=== PATIENT | female | born 1990 ===

== ENCOUNTER 2020-05-02 08:48 | Inpatient (IN) | payer BC ==
[2020-05-02] MEDS ORDERED: Misoprostol 25 MCG (1/4 of 100 MCG) Tab ONE (09:05)
[2020-05-02] MEDS ORDERED: Sodium Chloride 0.9% 10 ML Syringe FLUSH PRN (09:48)
[2020-05-02] MEDS ORDERED: Nalbuphine 10 MG/1 ML Vial IVPUSH PRN (09:48)
[2020-05-02] MEDS ORDERED: Misoprostol 200 MCG Tab PO PRN (09:48)
[2020-05-02] MEDS ORDERED: Lidocaine 1% 50 ML MDV INJECT PRN (09:48)
[2020-05-02] MEDS ORDERED: Water For Irrigation,Sterile 1,000 ML Container IRR PRN (09:48)
[2020-05-02] MEDS ORDERED: Misoprostol 25 MCG (1/4 of 100 MCG) Tab VAG PRN ×2 (09:48)
[2020-05-02] MEDS ORDERED: Methylergonovine 0.2 MG/1 ML Amp IM PRN ×2 (09:48→20:22)
[2020-05-02] MEDS ORDERED: Ampicillin 2 GM in Sodium Chloride 0.9% 100 ML IV ONE (09:48)
[2020-05-02] MEDS ORDERED: Sodium Chloride 0.9% 10 ML SDV IV PRN (09:48)
[2020-05-02] MEDS ORDERED: Terbutaline 1 MG/ML SDV SUBCUT PRN (09:48)
[2020-05-02] MEDS ORDERED: Sodium Chloride 0.9% 2.5 ML Syringe FLUSH PRN (09:48)
[2020-05-02] MEDS ORDERED: Butorphanol 1 MG/ML SDV IVPUSH PRN (09:48)
[2020-05-02] MEDS ORDERED: Ondansetron 4 MG/2 ML SDV IVPUSH PRN (09:48)
[2020-05-02] MEDS ORDERED: Carboprost Tromethamine 250 MCG/1 ML Amp IM PRN (09:48)
[2020-05-02] MEDS ORDERED: Tranexamic Acid 1,000 MG in Sodium Chloride 0.9% 100 ML IV PRN ×2 (09:48→20:22)
[2020-05-02] MEDS ORDERED: Oxytocin/0.9 % Sodium Chloride 30 UNIT/500 ML BAG IV SCH ×2 (10:00)
[2020-05-02] MEDS ORDERED: Lactated Ringers 1,000 ML IV SCH (10:00)
[2020-05-02] MEDS: Ampicillin 1 GM in Sodium Chloride 0.9% 50 ML IV SCH ×2 (13:47→18:11)
[2020-05-02] MEDS ORDERED: Benzocaine/Menthol 20%-0.5% Spray 78 GM Cannister TOP PRN (20:22)
[2020-05-02] MEDS ORDERED: Acetaminophen 500 MG Tab PO PRN ×2 (20:22)
[2020-05-02] MEDS ORDERED: Docusate Sodium 100 MG Cap PO PRN (20:22)
[2020-05-02] MEDS ORDERED: Ibuprofen 400 MG Tab PO PRN (20:22)
[2020-05-02] MEDS ORDERED: Bisacodyl 10 MG Supp RECTAL PRN (20:22)
[2020-05-02] MEDS ORDERED: Lanolin 100% Cream 7 GM Tube TOP PRN (20:22)
[2020-05-02] MEDS ORDERED: Hydrocortisone 2.5% Crm 30 GM Tube TOP PRN (20:22)
--- NOTE | 2020-05-02 20:29 | PCM.OPNOTE ---
- General Post-Op/Procedure Note Date of Surgery/Procedure: 05/02/20 Operative Procedure(s): TSVD, repair of 1st degree laceration Findings: liveborn female 3470 grams, 9/10, 1st degree perineal laceration repaired. Placenta spontaneous Schultze intact with 3 vessels. Pre Op Diagnosis: 39 weeks GBS positive Post-Op Diagnosis: Same Anesthesia Technique: Local Primary Surgeon: Marilyn Sommers Pathology: none EBL in mLs: 300 Complications: None Known Condition: Good
[2020-05-02] MEDS: Ibuprofen 800 MG Tab PO PRN (22:40)
--- NOTE | 2020-05-02 23:15 | OR ---
SURGEON: Marilyn Sommers M.D. DATE OF PROCEDURE: 05/02/2020 PREOPERATIVE DIAGNOSES: 1. A 39-week intrauterine . 2. Group B Streptococcus positive. POSTOPERATIVE DIAGNOSES: 1. A 39-week intrauterine . 2. Group B Streptococcus positive. PROCEDURES: 1. Cytotec, Pitocin induction of labor. 2. Term spontaneous vaginal delivery. 3. Repair of first-degree laceration. 4. Group B Streptococcus prophylaxis. PRIMARY SURGEON: Marilyn Sommers MD. ANESTHESIA: Local. ESTIMATED BLOOD LOSS: Less than 200 mL. FINDINGS: Liveborn female. score of 9 and 10. Weighing 3490 g. Placenta spontaneous, Schultze intact, with 3 vessels. First-degree perineal laceration repaired. COMPLICATIONS: None known. DISPOSITION: Mother and baby in LDR in good. BRIEF HISTORY: This is a 30-year-old female, G3, P2. She presents at 39 weeks' gestation for induction of labor. She was on Pitocin every 1 to 2 minute. She had received ampicillin for group B strep prophylaxis. She had artificial rupture of membranes and progressed to complete approximately 7 hours later. DESCRIPTION OF PROCEDURE: With the patient in dorsal lithotomy position, the patient pushed over 4 contractions to a 5+ station, at which time the head was delivered spontaneously and atraumatically over the perineum with support with subsequent delivery of the 's shoulders and body without any difficulty. The was bulb suctioned by nose and mouth, and after the cord had ceased to pulsate, it was doubly clamped and cut. The was handed to the mother in the presence of nursing delivery. The infant is a liveborn female, score of 9 and 10, weighing 3490 g. Cord blood was collected for cord ABGs as well as routine cord blood sampling. Pitocin was initiated after delivery of the to assist with delivery the placenta, which was delivered spontaneously, Schultze intact, with 3 vessels. Upon inspection of the pelvis and perineum, there were no periurethral, vaginal sidewall, cervical, or rectal lacerations. There was a first-degree laceration at 5 o'clock position that was repaired after instilling 15 mL of 1% lidocaine with a running subcuticular suture of 3-0 Vicryl. Note was made of a large pedunculated hemorrhoid and a prior laceration at the 7 o'clock position that looked like it had healed from secondary intention. Thankfully, this did not recur during this delivery. Final sponge, needle, and instrument counts were correct. There were no known complications. Mother and baby remained in LDR in good condition. LIA PEDRO /[id number]
[2020-05-02] MEDS: Witch Hazel Medicated Pads 40/Jar TOP PRN (23:18)
--- NOTE | 2020-05-03 08:21 | PCM.PNPP ---
- General Info Date of Service: 05/03/20 Admission Dx/Problem (Free Text): 30 year old at 39w1d gestation admitted for elective induction of labor Subjective Update: Resting comfortably in bed. No new concerns overnight. Ambulating and voiding without difficulty. Lochia decreasing. Pain well controlled. Tolerating regular diet. , going well per patient. - General Info Date of Service: 05/03/20 - Patient Data Vital Signs - Most Recent: Last Vital Signs Temp 97.9 F 05/03/20 07:41 Pulse 100 05/03/20 04:39 Resp 20 05/03/20 07:41 BP 113/71 05/03/20 07:41 Pulse Ox 94 L 05/03/20 07:41 Weight - Most Recent: 173 lb Lab Results - Last 24 Hours: Laboratory Results - last 24 hr 05/02/20 05/02/20 05/02/20 Range/Units 09:20 09:20 19:58 WBC 9.17 (4.0-11.0) K/uL RBC 3.92 L (4.30-5.90) M/uL Hgb 12.1 (12.0-16.0) g/dL Hct 36.3 (36.0-46.0) % MCV 92.6 (80.0-98.0) fL MCH 30.9 (27.0-32.0) pg MCHC 33.3 (31.0-37.0) g/dL RDW Std Deviation 45.2 (28.0-62.0) fl RDW Coeff of Aura 14 (11.0-15.0) % Plt Count 296 (150-400) K/uL MPV 9.40 (7.40-12.00) fL Nucleated RBC % 0.0 /100WBC Nucleated RBCs # 0 K/uL Cord ABG pH 7.306 (7.18-7.38) Cord ABG Base Excess -5 (-10--2) Cord VBG pH 7.359 (7.25-7.45) Cord VBG Base Excess -5 (-10--2) Blood Type O POSITIVE Antibody Screen NEGATIVE 05/03/20 Range/Units 05:48 WBC (4.0-11.0) K/uL RBC (4.30-5.90) M/uL Hgb 12.1 (12.0-16.0) g/dL Hct 36.4 (36.0-46.0) % MCV (80.0-98.0) fL MCH (27.0-32.0) pg MCHC (31.0-37.0) g/dL RDW Std Deviation (28.0-62.0) fl RDW Coeff of Aura (11.0-15.0) % Plt Count (150-400) K/uL MPV (7.40-12.00) fL Nucleated RBC % /100WBC Nucleated RBCs # K/uL Cord ABG pH (7.18-7.38) Cord ABG Base Excess (-10--2) Cord VBG pH (7.25-7.45) Cord VBG Base Excess (-10--2) Blood Type Antibody Screen Med Orders - Current: Current Medications Acetaminophen (Tylenol Extra Strength) 500 mg PO Q4H PRN PRN Reason: Pain Acetaminophen (Tylenol Extra Strength) 1,000 mg PO Q4H PRN PRN Reason: Pain Benzocaine/Menthol (Dermoplast Pain Relief 20%-0.5% [place]) 78 gm TOP ASDIRECTED PRN PRN Reason: Perineal Comfort Measure Last Admin: 05/02/20 23:21 Dose: 1 canister Documented by: Bisacodyl (Dulcolax) 10 mg RECTAL ONETIME PRN PRN Reason: Constipation Docusate Sodium (Colace) 100 mg PO BID PRN PRN Reason: Constipation Emollient Ointment (Lansinoh Hpa) 0 gm TOP ASDIRECTED PRN PRN Reason: Sore Nipples Hydrocortisone (Proctozone-Hc 2.5% Crm) 1 gm TOP Q12HR PRN PRN Reason: Itching Tranexamic Acid 1,000 mg/ (Sodium Chloride) 110 mls @ 660 mls/hr IV ONETIME PRN PRN Reason: Bleeding Ibuprofen (Motrin) 400 mg PO Q4H PRN PRN Reason: Pain Ibuprofen (Motrin) 800 mg PO Q6H PRN PRN Reason: Pain Last Admin: 05/02/20 22:40 Dose: 800 mg Documented by: Methylergonovine Maleate (Methergine) 0.2 mg IM ONETIME PRN PRN Reason: Excessive Vaginal Bleeding Witch Naomy (Tucks) 1 pad TOP ASDIRECTED PRN PRN Reason: comfort care Last Admin: 05/02/20 23:18 Dose: 1 container Documented by: Discontinued Medications Butorphanol Tartrate (Stadol) 1 mg IVPUSH Q1H PRN PRN Reason: Pain Carboprost Tromethamine (Hemabate Ds) 250 mcg IM ASDIRECTED PRN PRN Reason: Post Hemorrhage Lactated Ringer's (Ringers, Lactated) 1,000 mls @ 150 mls/hr IV ASDIRECTED OBDULIA Last Admin: 05/02/20 10:09 Dose: 150 mls/hr Documented by: Oxytocin/Sodium Chloride (Oxytocin 30 Unit/500 Ml-Ns) 30 unit in 500 mls @ 500 mls/hr IV TITRATE OBDULIA Tranexamic Acid 1,000 mg/ (Sodium Chloride) 110 mls @ 660 mls/hr IV ONETIME PRN PRN Reason: Bleeding Oxytocin/Sodium Chloride (Oxytocin 30 Unit/500 Ml-Ns) 30 unit in 500 mls @ 2 mls/hr IV TITRATE OBDULIA; Protocol Last Titration: 05/02/20 20:00 Dose: 500 munits/min, 500 mls/hr Documented by: Ampicillin Sodium 2 gm/ Sodium (Chloride) 100 mls @ 200 mls/hr IV ONETIME ONE Stop: 05/02/20 10:17 Last Admin: 05/02/20 10:10 Dose: 200 mls/hr Documented by: Ampicillin Sodium 1 gm/ Sodium (Chloride) 50 mls @ 100 mls/hr IV Q4H OBDULIA Last Admin: 05/02/20 18:11 Dose: 100 mls/hr Documented by: Lidocaine HCl (Xylocaine 1%) 50 ml INJECT ONETIME PRN PRN Reason: Laceration repair Last Admin: 05/02/20 20:00 Dose: 50 ml Documented by: Methylergonovine Maleate (Methergine) 0.2 mg IM ASDIRECTED PRN PRN Reason: Post Hemorrhage Misoprostol (Cytotec) Confirm Administered Dose 25 mcg .ROUTE .STK-MED ONE Stop: 05/02/20 09:06 Last Admin: 05/02/20 09:10 Dose: 25 mcg Documented by: Misoprostol (Cytotec) 200 mcg PO ONETIME PRN PRN Reason: Post Hemorrhage Misoprostol (Cytotec) 25 mcg VAG ONETIME PRN PRN Reason: Cervical Ripening Misoprostol (Cytotec) 25 mcg VAG Q4H PRN PRN Reason: Cervical Ripening Nalbuphine HCl (Nubain) 10 mg IVPUSH Q1H PRN PRN Reason: Pain (severe 7-10) Ondansetron HCl (Zofran) 4 mg IVPUSH Q6H PRN PRN Reason: Nausea/Vomiting Sodium Chloride (Saline Flush) 10 ml FLUSH ASDIRECTED PRN PRN Reason: Keep Vein Open Sodium Chloride (Saline Flush) 2.5 ml FLUSH ASDIRECTED PRN PRN Reason: Keep Vein Open Sodium Chloride (Normal Saline) 10 ml IV ASDIRECTED PRN PRN Reason: IV Use Sterile Water (Sterile Water For Irrigation) 1,000 ml IRR ASDIRECTED PRN PRN Reason: delivery Terbutaline Sulfate (Brethine) 0.25 mg SUBCUT ASDIRECTED PRN PRN Reason: Tacysystole - Interaction Disposition, : [place] at Bedside Infant Feeding: Breastfed ; Nursed Well Support Person: - Recovery Exam Fundal Tone: Firm Fundal Level: 1 Fingerbreadths Below Umbilicus Fundal Placement: Midline Lochia Amount: Small Lochia Color: Rubra/Red Perineum Description: Intact, Minimal Bruising/Swelling Episiotomy/Laceration: Approximated Bladder Status: Voiding - Exam General: Alert Lungs: Normal Respiratory Effort Cardiovascular: Regular Rate GI/Abdominal Exam: Soft, Non-Tender Extremities: Normal Inspection, No Pedal Edema Skin: Warm, Dry, Intact Wound/Incisions: Healing Well Neurological: No New Focal Deficit Psy/Mental Status: Normal Mood - Problem List Review Problem List Initiated/Reviewed/Updated: Yes - Assessment Assessment:: 30 year old G3 now P3 PPD 1 s/p - Plan Plan:: Routine cares * Rh positive, rubella immune * GBS positive, received 1 dose of antibiotics prior to rupture of membrane and 2 additional doses prior to delivery for a total of 3. * PO pain medications as indicated * Regular diet as tolerated * , nursing assistance PRN Dispo: stable. Anticipate discharge tomorrow due to late hour of delivery and GBS+ status. Continue cares today.
[2020-05-03] MEDS: Ibuprofen 800 MG Tab PO PRN (12:27)
[2020-05-04] MEDS: Witch Hazel Medicated Pads 40/Jar TOP PRN (02:09)
--- NOTE | 2020-05-04 08:17 | PCM.PNPP ---
- General Info Date of Service: 05/04/20 Admission Dx/Problem (Free Text): 30 year old at 39w1d gestation admitted for elective induction of labor Subjective Update: Ambulating about room this morning. No new concerns overnight. Ambulating and voiding without difficulty. Lochia decreasing. Pain well controlled. Tolerating regular diet. and supplementing with formula. Baby's bilirubin is being monitored this morning per patient. - General Info Date of Service: 05/04/20 - Patient Data Vital Signs - Most Recent: Last Vital Signs Temp 97.2 F 05/04/20 05:04 Pulse 99 05/04/20 05:04 Resp 18 05/04/20 05:04 BP 132/86 05/04/20 05:04 Pulse Ox 98 05/04/20 05:04 Weight - Most Recent: 173 lb Med Orders - Current: Current Medications Acetaminophen (Tylenol Extra Strength) 500 mg PO Q4H PRN PRN Reason: Pain Acetaminophen (Tylenol Extra Strength) 1,000 mg PO Q4H PRN PRN Reason: Pain Benzocaine/Menthol (Dermoplast Pain Relief 20%-0.5% [place]) 78 gm TOP ASDIRECTED PRN PRN Reason: Perineal Comfort Measure Last Admin: 05/02/20 23:21 Dose: 1 canister Documented by: Bisacodyl (Dulcolax) 10 mg RECTAL ONETIME PRN PRN Reason: Constipation Docusate Sodium (Colace) 100 mg PO BID PRN PRN Reason: Constipation Emollient Ointment (Lansinoh Hpa) 0 gm TOP ASDIRECTED PRN PRN Reason: Sore Nipples Hydrocortisone (Proctozone-Hc 2.5% Crm) 1 gm TOP Q12HR PRN PRN Reason: Itching Tranexamic Acid 1,000 mg/ (Sodium Chloride) 110 mls @ 660 mls/hr IV ONETIME PRN PRN Reason: Bleeding Ibuprofen (Motrin) 400 mg PO Q4H PRN PRN Reason: Pain Ibuprofen (Motrin) 800 mg PO Q6H PRN PRN Reason: Pain Last Admin: 05/03/20 12:27 Dose: 800 mg Documented by: Methylergonovine Maleate (Methergine) 0.2 mg IM ONETIME PRN PRN Reason: Excessive Vaginal Bleeding Witch Naomy (Tucks) 1 pad TOP ASDIRECTED PRN PRN Reason: comfort care Last Admin: 05/04/20 02:09 Dose: 1 container Documented by: Discontinued Medications Butorphanol Tartrate (Stadol) 1 mg IVPUSH Q1H PRN PRN Reason: Pain Carboprost Tromethamine (Hemabate Ds) 250 mcg IM ASDIRECTED PRN PRN Reason: Post Hemorrhage Lactated Ringer's (Ringers, Lactated) 1,000 mls @ 150 mls/hr IV ASDIRECTED OBDULIA Last Admin: 05/02/20 10:09 Dose: 150 mls/hr Documented by: Oxytocin/Sodium Chloride (Oxytocin 30 Unit/500 Ml-Ns) 30 unit in 500 mls @ 500 mls/hr IV TITRATE OBDULIA Tranexamic Acid 1,000 mg/ (Sodium Chloride) 110 mls @ 660 mls/hr IV ONETIME PRN PRN Reason: Bleeding Oxytocin/Sodium Chloride (Oxytocin 30 Unit/500 Ml-Ns) 30 unit in 500 mls @ 2 mls/hr IV TITRATE [facility]; Protocol Last Titration: 05/02/20 20:00 Dose: 500 munits/min, 500 mls/hr Documented by: Ampicillin Sodium 2 gm/ Sodium (Chloride) 100 mls @ 200 mls/hr IV ONETIME ONE Stop: 05/02/20 10:17 Last Admin: 05/02/20 10:10 Dose: 200 mls/hr Documented by: Ampicillin Sodium 1 gm/ Sodium (Chloride) 50 mls @ 100 mls/hr IV Q4H OBDULIA Last Admin: 05/02/20 18:11 Dose: 100 mls/hr Documented by: Lidocaine HCl (Xylocaine 1%) 50 ml INJECT ONETIME PRN PRN Reason: Laceration repair Last Admin: 05/02/20 20:00 Dose: 50 ml Documented by: Methylergonovine Maleate (Methergine) 0.2 mg IM ASDIRECTED PRN PRN Reason: Post Hemorrhage Misoprostol (Cytotec) Confirm Administered Dose 25 mcg .ROUTE .STK-MED ONE Stop: 05/02/20 09:06 Last Admin: 05/02/20 09:10 Dose: 25 mcg Documented by: Misoprostol (Cytotec) 200 mcg PO ONETIME PRN PRN Reason: Post Hemorrhage Misoprostol (Cytotec) 25 mcg VAG ONETIME PRN PRN Reason: Cervical Ripening Misoprostol (Cytotec) 25 mcg VAG Q4H PRN PRN Reason: Cervical Ripening Nalbuphine HCl (Nubain) 10 mg IVPUSH Q1H PRN PRN Reason: Pain (severe 7-10) Ondansetron HCl (Zofran) 4 mg IVPUSH Q6H PRN PRN Reason: Nausea/Vomiting Sodium Chloride (Saline Flush) 10 ml FLUSH ASDIRECTED PRN PRN Reason: Keep Vein Open Sodium Chloride (Saline Flush) 2.5 ml FLUSH ASDIRECTED PRN PRN Reason: Keep Vein Open Sodium Chloride (Normal Saline) 10 ml IV ASDIRECTED PRN PRN Reason: IV Use Sterile Water (Sterile Water For Irrigation) 1,000 ml IRR ASDIRECTED PRN PRN Reason: delivery Terbutaline Sulfate (Brethine) 0.25 mg SUBCUT ASDIRECTED PRN PRN Reason: Tacysystole - Interaction Infant Disposition, : at Bedside Infant Feeding: Attempted ; Nursed Fair/Poor, Bottle Fed Support Person: - Recovery Exam Fundal Tone: Firm Fundal Level: 1 Fingerbreadths Below Umbilicus Fundal Placement: Midline Lochia Amount: Small Lochia Color: Rubra/Red Perineum Description: Intact, Minimal Bruising/Swelling Episiotomy/Laceration: Approximated Bladder Status: Voiding Urinary Elimination: Voided - Exam General: Alert Lungs: Normal Respiratory Effort Cardiovascular: Regular Rate GI/Abdominal Exam: Soft, Non-Tender Extremities: Normal Inspection, No Pedal Edema Skin: Warm, Dry, Intact Neurological: No New Focal Deficit Psy/Mental Status: Normal Mood - Problem List Review Problem List Initiated/Reviewed/Updated: Yes - Assessment Assessment:: 30 year old G3 now P3 PPD 2 s/p - Plan Plan:: Routine cares * Rh positive, rubella immune * GBS positive, received 1 dose of antibiotics prior to rupture of membrane and 2 additional doses prior to delivery for a total of 3. * PO pain medications as indicated * Regular diet as tolerated * and supplementing, nursing assistance PRN Dispo: stable. Anticipate discharge today. Reviewed discharge precautions with patient and significant other including fever/chills, intractable nausea/vomiting, pain not controlled by Tylenol or Ibuprofen or heavy bleeding with soaking >1 pad/hr for >2 hours. Questions elicited and answered.
== END 2020-05-04 12:10 | disposition home or self-care (01) | DRG 560 ==
LOC: MW.OBCHECK 08:48 → MW.OB 08:48 → UNDOADMOB 09:48 → MW.OBCHECK 10:08 → MW.OB 20:22 → INTOOBSV 20:22 → OBSVTOIN 20:22 → MW.OB 23:30 → UNDODISIN 05-04 12:10
PROVIDERS: ADMIT Obstetrics & Gynecology; ATTEND Obstetrics & Gynecology
PROC: 10E0XZZ Delivery of Products of Conception, External Approach (ICD-10-PCS; principal; 2020-05-02)
PROC: 10907ZC Drainage of Amniotic Fluid, Therapeutic from Products of Conception, Via Natural or Artificial Opening (ICD-10-PCS; 2020-05-02)
PROC: 3E0P7VZ Introduction of Hormone into Female Reproductive, Via Natural or Artificial Opening (ICD-10-PCS; 2020-05-02)
PROC: 3E033VJ Introduction of Other Hormone into Peripheral Vein, Percutaneous Approach (ICD-10-PCS; 2020-05-02)
PROC: 0HQ9XZZ Repair Perineum Skin, External Approach (ICD-10-PCS; 2020-05-02)
DX: O99.824 Streptococcus B carrier state complicating childbirth (principal); Z37.0 Single live birth; Z3A.39 39 weeks gestation of pregnancy; O70.0 First degree perineal laceration during delivery
CPT/HCPCS: 36415; 59025; 59409; 82803; 85014; 85018; 85027; 86592; 86850; 86900; 86901; A9270-GY; J0290; J2001; J2590; J7050; J7120